=== PATIENT | male | born 1950 | race Caucasian/White ===

== ENCOUNTER 2018-07-09 12:15 | Day surgery (SDC) | payer OTHER ==
[2018-07-08 14:55] VITALS: BMI 30.4
[2018-07-09 13:53] VITALS: TEMP 97.9
[2018-07-09 14:38] VITALS: BP 122/81; PULSE 57
--- NOTE | 2018-07-13 12:24 | PATH ---
Surgical Pathology Report Patient Name: [facility]. Rec. #: [id number] /Age/Gender: 1950 (Age: 67) / M Account: [id number] Location: U-ENDOSCOPY Taken: 07/09/2018 Received: 07/12/2018 Reported: 07/13/2018 Physicians: Adan Hewitt M.D. Specimen(s) Received POLYP SIGMOID Clinical History Rectal bleeding, cancer surveillance Final Diagnosis SIGMOID COLON, POLYP, BIOPSY: HYPERPLASTIC POLYP. Electronically Signed Haley Keyes M.D. Gross Description Received in formalin, labeled "biopsy polyp sigmoid colon" are 2 ocasio, irregular portions of soft tissue measuring 0.2 and 0.5 cm. in greatest dimension. The specimens are submitted in toto in one cassette. 07/12/201807/12/2018
== END 2018-07-09 14:38 | disposition home or self-care (01) ==
LOC: JASU-ENDO 12:15
PROVIDERS: ATTEND Internal Medicine Gastroenterology
PROC: 0DBN8ZX Excision of Sigmoid Colon, Via Natural or Artificial Opening Endoscopic, Diagnostic (ICD-10-PCS; principal; 2018-07-09 13:15)
DX: Z12.11 Encounter for screening for malignant neoplasm of colon (principal); Z86.010 Personal history of colon polyps; K57.30 Diverticulosis of large intestine without perforation or abscess without bleeding; K64.8 Other hemorrhoids; K63.5 Polyp of colon
CPT/HCPCS: 88305-TC